=== PATIENT | female | born 1980 | race Caucasian/White ===

== ENCOUNTER 2018-10-30 09:00 | Inpatient (IN) | payer MEDICAID ==
[~2018-10-30] VITALS: Ht 152.4 cm; Wt 62.1 kg
[2018-10-30] MEDS ORDERED: PNV11TAB PO (13:53)
[2018-10-30 13:58] VITALS: BP 110/70; PULSE 87; RESP 18
[2018-10-30] MEDS ORDERED: LIDOCAINE 1% (MPF) 30 ML INJ INJ PRN (14:00)
[2018-10-30] MEDS ORDERED: MISOPROSTOL 200 MCG TAB PR PRN (14:00)
[2018-10-30] MEDS ORDERED: OXYTOCIN 30 UNITS/LR 500 ML IV PRN (14:00)
[2018-10-30] MEDS ORDERED: BUTORPHANOL 2 MG INJ IV PRN (14:00)
[2018-10-30] MEDS ORDERED: OXYTOCIN 30 UNITS/LR 500 ML IV SCH ×4 (14:00→23:42)
[2018-10-30] MEDS ORDERED: CARBOPROST 250 MCG INJ IM PRN (14:00)
[2018-10-30] MEDS ORDERED: AMPICILLIN 2 GM/NS (PMX) 100 ML IV ONE (14:00)
[2018-10-30] MEDS ORDERED: METHYLERGONOVINE 0.2 MG INJ IM PRN (14:00)
[2018-10-30] MEDS: LACTATED RINGER'S 1,000 ML IV SCH ×2 (15:23→20:22)
[2018-10-30] MEDS ORDERED: MISOPROSTOL 50 MCG CAPSULE PO SCH (16:45)
[2018-10-30] MEDS ORDERED: AMPICILLIN 1 GM/NS (PMX) 50 ML IV SCH (18:00)
--- NOTE | 2018-10-30 21:41 | PREAC ---
Date/Time of Note Date/Time of Note DATE: 10/30/18 TIME: 21:40 Anesthesia Eval and Record Evaluation Time Pre-Procedure Interview DATE: 10/30/18 TIME: 21:40 Age 38 Sex female NPO: 8 hrs Preoperative diagnosis iup at 40 weeks Planned procedure labor epidural Past Medical History Past Medical History: None Surgery & Anesthesia Issues No known issue Meds Anticoagulation: No Beta Daniella within 24 hr: No Reason Beta Daniella not given: Pt. not on B-Daniella Reported Medications [id number] ( 19) 1 Each Tablet, 1 TAB PO DAILY, TAB 10/30/18 Current Medications Lactated Ringer's 1,000 ml @ 125 mls/hr Q8H IV Last administered on 10/30/18at 20:22; Admin Dose 125 MLS/HR; Start 10/30/18 at 13:53 Ampicillin 50 ml @ 100 mls/hr Q4H IV Last administered on 10/30/18at 20:26; Admin Dose 100 MLS/HR; Start 10/30/18 at 18:00 Butorphanol Tartrate (Stadol) 2 mg Q2H PRN IV .PAIN SCALE 6-10 Last administered on 10/30/18at 20:22; Admin Dose 2 MG; Start 10/30/18 at 14:00 Lidocaine (Xylocaine 1% (Mpf)) 30 ml ONCE PRN INJ .EPISIOTOMY; Start 10/30/18 at 14:00 Oxytocin/Lactated Ringer's 500 ml @ 500 mls/hr ONCE POST IV ; Start 10/30/18 at 14:00 Oxytocin/Lactated Ringer's 500 ml @ 125 mls/hr POST IV ; Start 10/30/18 at 14:00 Oxytocin/Lactated Ringer's 500 ml @ 0 mls/hr ONCE PRN IV .VAGINAL BLEEDING; Start 10/30/18 at 14:00 Methylergonovine Maleate (Methergine) 0.2 mg ONCE PRN IM .VAGINAL BLEEDING; Start 10/30/18 at 14:00 Carboprost Tromethamine (Hemabate) 250 mcg ONCE PRN IM .VAGINAL BLEEDING; Start 10/30/18 at 14:00 Misoprostol (Cytotec) 1,000 mcg ONCE PRN OR .VAGINAL BLEEDING; Start 10/30/18 at 14:00 Misoprostol (Cytotec 50 Mcg Capsule) 50 mcg Q4 PO Last administered on 10/30/18at 15:52; Admin Dose 50 MCG; Start 10/30/18 at 16:45; Stop 10/31/18 at 13:01 Oxytocin/Lactated Ringer's 500 ml @ 0 mls/hr FOR AUGMENTATION IV ; Start 10/30/18 at 20:30 Meds reviewed: Yes Allergies Coded Allergies: No Known Allergy (Unverified , 10/30/18) Allergies Reviewed: Yes Labs/Studies Labs Reviewed: Reviewed by anesthesiologist Result Diagram: 10/30/18 1448 Laboratory Tests 10/30/18 14:48 Blood Bank Test 10/30/18 14:48 Antibody Screen NEGATIVE Blood Type O POSITIVE Rh Immune Globulin Candidate NO test: Positive Pre-procedure Exam Last vitals Vital Signs Date Temp Pulse Resp B/P (MAP) Pulse Ox O2 O2 Flow FiO2 Time Delivery Rate 10/30/18 98.7 87 18 110/70 Room Air 13:58 (83) Airway: Adequate mouth opening, Adequate thyromental dist Mallampati: Mallampati I Teeth: Normal Lung: Normal Heart: Normal ASA Physical Status ASA physical status: 2 Emergency: None Planned Anesthetic Neuraxial: Epidural Planned Pain Management Parenteral pain med Pre-operative Attestations Prior to commencing anesthesia and surgery, the patient was re-evaluated, there was verification of: *The patient's identity *The results of appropriate recent lab work and preoperative vital signs *The above evaluation not changing prior to induction *Anesthetic plan, risk benefits, alternative and complications discussed with patient/family; questions answered; patient/family understands, accepts and wishes to proceed. DREW CLIFTON Oct 30, 2018 21:41
[2018-10-30] MEDS ORDERED: FENTAnyl 2MCG/ML-ROPIV 0.2% 100 ML ONE (21:43)
[2018-10-30] MEDS ORDERED: FENTAnyl 2MCG/ML-ROPIV 0.2% 100 ML BAG EPI SCH (22:00)
[2018-10-30] MEDS ORDERED: DIPHENHYDRAMINE 50 MG INJ IV PRN (22:00)
[2018-10-30] MEDS ORDERED: NALOXONE (0.4 MG/ML) INJ IV PRN (22:00)
[2018-10-30] MEDS ORDERED: ONDANSETRON 4 MG INJ IV PRN (22:00)
--- NOTE | 2018-10-30 23:42 | LDN ---
Date/Time of Note Date/Time of Note DATE: 10/30/18 TIME: 23:41 Delivery Summary Weeks of Gestation 40 Placenta Delivered: Spontaneously Meconium: none Episiotomy: No Laceration repair: 1st degree vaginal laceration repair with 4-0 chromic Anesthesia type: Epidural Estimated blood loss: 150 Sponge & Needle done & correct: Yes All needle counts correct: Yes Any foreign bodies felt in the: No Infant Delivery Information Sex Infant Sex: female Apgars 1 Minute: 8 5 Minute: 9 Suctioning Nose & mouth suctioned at nicol: No Delee suction performed: No Umbilical Cord Umbilical cord with: 3 Vessels Cord presentations: nuchal cord Nuchal cord present X: 1 Cord Blood was obtained: Yes JUAN HURTADO MD Oct 30, 2018 23:42
[2018-10-31] MEDS ORDERED: SENNA/DOCUSATE NA (8.6MG/50MG) TAB PO PRN
[2018-10-31] MEDS ORDERED: CARBOPROST 250 MCG INJ IM PRN
[2018-10-31] MEDS ORDERED: MISOPROSTOL 200 MCG TAB PR PRN
[2018-10-31] MEDS ORDERED: WITCH HAZEL/GLYCERIN PAD PR PRN
[2018-10-31] MEDS ORDERED: NACL 0.9% 3 ML SYG IV SCH
[2018-10-31] MEDS ORDERED: ONDANSETRON 4 MG INJ IV PRN
[2018-10-31] MEDS ORDERED: BENZOCAINE 20% 56 ML SPRAY TOP PRN
[2018-10-31] MEDS ORDERED: ACETAMINOPHEN 325 MG TAB PO PRN
[2018-10-31] MEDS ORDERED: OXYTOCIN 30 UNITS/LR 500 ML IV PRN
[2018-10-31] MEDS ORDERED: OXYCODONE/ASPIRIN (4.88/325) TAB PO PRN ×2
[2018-10-31] MEDS ORDERED: METHYLERGONOVINE 0.2 MG INJ IM PRN
--- NOTE | 2018-10-31 00:09 | PREOPHP ---
DATE OF ADMISSION: 10/30/2018 HISTORY OF PRESENT ILLNESS: Ms. Ines Griffiths is a 38-year-old 4, para 3, EDC 9 intrauterine at 40 weeks' gestational age, admitted today for induction secondary to adry thomas low JUAN. She denies any contractions, vaginal bleeding, or discharge. Her care took place at [facility]. PAST MEDICAL HISTORY: None. MEDICATIONS: vitamins. PAST SURGICAL HISTORY: None. OBSTETRIC HISTORY: x3 vaginal deliveries. GYNECOLOGIC HISTORY: 12, regular 3 to 4 days. Denies any sexually transmitted infections. Sexually active with one partner. SOCIAL HISTORY: Denies any smoking, drugs or alcohol. FAMILY HISTORY: None. REVIEW OF SYSTEMS: All within normal except history of present illness. PHYSICAL EXAMINATION: HEENT: Within normal. LUNGS: CTA bilateral. CARDIOVASCULAR: S1, S2, regular rhythm. ABDOMEN: Gravid, nontender. Negative CVA bilateral. EXTREMITIES: No calf tenderness. PELVIC: Vaginal exam, 2 cm dilated, 80% effaced, -2 station, intact. heart tracing category 1 . ASSESSMENT: Intrauterine at 40 weeks gestational age, advanced maternal age, borderline lo w amniotic fluid index, admitted for induction. PLAN: Admit the patient with Cytotec followed by Pitocin as needed. Dictated By: JUAN WEBER/RAFIQ Conf#: [id number] DID#: [id number]
[2018-10-31 01:15] VITALS: BP 112/67; PULSE 59; RESP 18
[2018-10-31] MEDS: LANOLIN HPA 1 PKT TOP PRN ×2 (01:32→17:24)
[2018-10-31 04:30] VITALS: BP 108/58; PULSE 61; RESP 18
[2018-10-31] MEDS: IBUPROFEN 600 MG TAB PO SCH ×4 (05:44→17:24)
--- NOTE | 2018-10-31 07:48 | PD.PPDC ---
CONCESSION ATTENDANT Discharge Instruction Condition [id number] Patient Condition: Wpjxh1m Fair Diet Lgtqm2Hn Diet: Aiesm7c Resume Regular Diet Activity/Restrictions [id number] Activity: Pewjd9c Normal Activity May Shower Mkdxy6Mj Restrictions: Pwuum0e No Exercising No Lifting No Driving No Sexual Activity Nothing in the Vagina No [place] No Tampons, douche Follow-up Follow-up with Physician: 3, Week/Weeks Return to clinic for Bwidh0Hr CONTROLLER INSTRUCTOR Instructions: Drany1f Fever greater than 101 Chills Worsening abdominal pain Excessive Vaginal Bleeding More than 2 pads per hour Unable to tolerate diet Zmolj0Nk OB Instructions: Mlnqw4a Breast Tenderness Depression Blurried Vision Headache [id number] Surgical Instructions: Wyjar4w Incisional Drainage Incisional Redness JUAN HURTADO MD Oct 31, 2018 07:48
--- NOTE | 2018-10-31 07:50 | DS ---
Date/Time of Note Date/Time of Note DATE: 10/31/18 TIME: 07:49 Obstetrical Discharge Record Final Diagnosis Final Diagnosis: Term delivered Vaginal Delivery Obstetrical Delivery: Spontaneous Condition on Discharge Physical Assessment Last Vitals: stable afebrile Voiding: Yes Bowel Movement: Yes Breast: Soft, non-tender, Filling Fundus: Firm Abdomen and Incision: soft nt Calf Tenderness: No Patient Condition: Fair JUAN HURTADO MD Oct 31, 2018 07:50
[2018-10-31 08:00] VITALS: BP 109/63; RESP 18
--- NOTE | 2018-10-31 08:30 | PAC ---
Date/Time of Note Date/Time of Note DATE: 10/31/18 TIME: 08:30 Post-Anesthesia Notes Post-Anesthesia Note Last documented vital signs Vital Signs Date Temp Pulse Resp B/P (MAP) Pulse Ox O2 O2 Flow FiO2 Time Delivery Rate 10/31/18 98.2 61 18 108/58 Room Air 04:30 (75) Activity: WNL Respiratory function: WNL Cardiovascular function: WNL Mental status: Baseline Pain reasonably controlled: Yes Hydration appropriate: Yes Nausea/Vomiting absent: Yes DREW CLIFTON Oct 31, 2018 08:30
[2018-10-31] MEDS: PRENATAL VITAMIN PO SCH (08:43)
[2018-10-31] MEDS: SENNA/DOCUSATE NA (8.6MG/50MG) TAB PO SCH ×2 (08:43→22:20)
--- NOTE | 2018-10-31 10:55 | NSTRPT ---
NST Information Datetime Report Generated by CPN: 10/31/2018 10:55 Datetime: 10/30/2018 09:50 NST Information EGA: 40.0 Test Number: 5 Time on Monitor: 10/30/2018 10:14 Time off Monitor: 10/30/2018 10:53 NST Duration (Min): 39 Reason for NST: Other Reason for NST Other: Advanced Maternal Age Test and Monitor Explained: Monitor Explained; Test Explained; Verbalized Understanding Pulse: 83 Resp: 18 SBP: 105 DBP: 74 Test Evaluation NST Interventions: Reposition Patient Patient States Movement: Present Contraction Frequency: X2(denies) FHR Baseline : 125 Variability: Moderate 6-25bpm Accelerations: 15X15 Decelerations: None FHR Category: Category I Comments: To u/s, JUAN 6.8cm.CEPHALIC. 1050-Report to Dr Jones, recommends delivery by tomorrow am. Report to Dr Deal, order receive d for pt to go to L_D for induction today. Pt instructed to return at 1400 today to Labor and deilive ry, pt stated understanding. Report to Shawanda RN, in L_D. Electronically Signed By E-Signature: with User ID: [id number] Datetime: 10/27/2018 09:46 NST Information EGA: 39.4 NST Duration (Min): 26 Datetime: 10/25/2018 10:11 NST Information EGA: 39.2 NST Duration (Min): 21 Datetime: 10/18/2018 10:12 NST Information EGA: 38.2 NST Duration (Min): 29 Datetime: 10/11/2018 10:59 NST Information EGA: 37.2 Datetime: 10/11/2018 10:50 NST Duration (Min): 29
[2018-10-31 11:57] VITALS: BP 101/64; PULSE 63; RESP 18
[2018-10-31 16:49] VITALS: BP 81/51; PULSE 61; RESP 18
[2018-10-31 20:00] VITALS: BP 98/55; PULSE 56; RESP 18
[2018-11-01 04:00] VITALS: BP 104/58; PULSE 58; RESP 18
[2018-11-01] MEDS: IBUPROFEN 600 MG TAB PO SCH ×3 (06:06→12:03)
[2018-11-01 08:00] VITALS: BP_SYST 90; RESP 18
[2018-11-01] MEDS ORDERED: MEASLES,MUMPS,RUBELLA VACCINE INJ SC* ONE (09:00)
[2018-11-01] MEDS: SENNA/DOCUSATE NA (8.6MG/50MG) TAB PO SCH (09:24)
[2018-11-01] MEDS: PRENATAL VITAMIN PO SCH (09:25)
--- NOTE | 2018-11-02 16:46 | DELSUM ---
Delivery Summary A-C Datetime Report Generated by CPN: 11/02/2018 16:46 DELIVERY PERSONNEL Telephone Directory Distributor Driver: Mandi Reis MATERNAL INFORMATION Delivery Anesthesia: Epidural Medications in Delivery: PITOCIN 30 UNITS Delivery QBL (ml): 200 Placenta Cultured: No Maternal Complications: None LABOR SUMMARY EDC: 10/30/2018 00:00 No. Babies in Womb: 1 Attempted: No Labor Anesthesia: Epidural LABOR INFORMATION Reason for Induction: Oligohydramnios Onset of Labor: 10/30/2018 19:18 Complete Dilatation: 10/30/2018 22:48 Cervical Ripening Agents: Cytotec @ Oxytocin: N/A Group B Beta Strep: Positive Antibiotics # of Doses: X2 AMP Antibiotics Time of Last Dose: 10/30/2018 20:26 Steroids Given: None Reason Steroids Not Administered: Not Applicable MEMBRANES Membranes Rupture Method: Spontaneous Rupture of Membranes: 10/30/2018 22:10 Length of Rupture (hr): 1.28 Amniotic Fluid Color: Clear Amniotic Fluid Amount: Large Amniotic Fluid Odor: None STAGES OF LABOR Stage 1 hr: 3 Stage 1 min: 30 Stage 2 hr: 0 Stage 2 min: 39 Stage 3 hr: 0 Stage 3 min: 5 Total Time in Labor hr: 4 Total Time in Labor min: 14 VAGINAL DELIVERY Episiotomy: None Laceration Extension: First Degree Laceration Type: Vaginal Laceration Repair: Yes Initial Vag Sponge Count: 10 Final Vag Sponge Count: 10 Initial Vag Sharps Count: 1 Final Vag Sharps Count: 2 Sponge Count Correct: Yes; Vaginal Sweep Performed Sharps Count Correct: Yes BABY A INFORMATION Infant Delivery Date/Time: 10/30/2018 23:27 Method of Delivery: Vaginal Born in Route : No : N/A Forceps: N/A Vacuum Extraction: N/A Shoulder Dystocia : N/A SHOULDER DYSTOCIA BABY A Delivery Date/Time: 10/30/2018 23:27 PRESENTATION/POSITION BABY A Presentation: Cephalic Cephalic Presentation: Vertex Vertex Position: Right Occipital Anterior Breech Presentation: N/A PLACENTA INFORMATION BABY A Placenta Delivery Time : 10/30/2018 23:32 Placenta Method of Delivery: Spontaneous Placenta Status: Delivered SCORES BABY A Heart Rate 1 min: >100 bpm Resp Effort 1 min: Good Cry Reflex Irritability 1 min: Cough/Sneeze/Pulls Away Muscle Tone 1 min: Active Motion Color 1 min: Blue/Pale Resuscitation Effort 1 min: Tactile Stimulation SCORE 1 MIN: 8 Heart Rate 5 min: >100 bpm Resp Effort 5 min: Good Cry Reflex Irritability 5 min: Cough/Sneeze/Pulls Away Muscle Tone 5 min: Active Motion Color 5 min: Body [place], Extremit Blue Resuscitation Effort 5 min: Tactile Stimulation SCORE 5 MIN: 9 INFANT INFORMATION BABY A Gestational Age at Delivery: 40.0 Gestational Status: Full Term- 39- 40.6 Weeks Infant Outcome : Liveborn Infant Condition : Stable Infant Sex: Female IDENTIFICATION/MEDS BABY A ID Band Number: [id number] ID Band Location: Right Leg; Left Arm Sensor Number: [id number] Sensor Location : Cord Clamp Vitamin K Given : Not Given Erythromycin Given: Not Given WEIGHT/LENGTH BABY A Birthweight (gm): 3470 Weight (lb): 7 Weight (oz): 10 Infant Length (in): 20.00 Length (cm): 50.80 CORD INFORMATION BABY A No. Cord Vessels: 3 Nuchal Cord : Around Neck x1, Loose Cord Blood Taken: Yes Infant Suction: Mouth; Nose ASSESSMENT BABY A Infant Complications: Extended Bradycardi Physical Findings at Delivery: Molding of the Head; Within Normal Limits Infant Respirations: Appears Normal Floatman/ALS Called : Yes Care By: GRACE Transferred To: Remains with Mother
== END 2018-11-01 15:43 | disposition home or self-care (01) | DRG 807 ==
LOC: UNDOADMIN 10:50 → L-D 10:50 → PP1 10-31 01:04
PROVIDERS: ADMIT Obstetrics & Gynecology; ATTEND Obstetrics & Gynecology
PROC: 10E0XZZ Delivery of Products of Conception, External Approach (ICD-10-PCS; principal; 2018-10-30)
PROC: 0HQ9XZZ Repair Perineum Skin, External Approach (ICD-10-PCS; 2018-10-30)
DX: O41.03X0 Oligohydramnios, third trimester, not applicable or unspecified (principal); Z37.0 Single live birth; O70.0 First degree perineal laceration during delivery; O69.81X0 Labor and delivery complicated by cord around neck, without compression, not applicable or unspecified; Z3A.40 40 weeks gestation of pregnancy
CPT/HCPCS: 62322; 76815; 85025; 85610; 85730; 86592; 86850; 86900; 86901; 87340; 99464; J0290; J0595; J2590; J3010; J7120